=== PATIENT | female | born 1990 | race Two or more races ===

== ENCOUNTER 2021-06-30 12:24 | Emergency (ER) | payer MEDICAID, OTHER ==
[~2021-06-30] VITALS: Ht 154.9 cm; Wt 56.7 kg
[2021-06-30 15:47] VITALS: BP 129/65
== END 2021-06-30 17:17 | disposition home or self-care (01) ==
LOC: ER 12:24
DX: S82.832A Other fracture of upper and lower end of left fibula, initial encounter for closed fracture (principal); W18.49XA Other slipping, tripping and stumbling without falling, initial encounter; Y93.89 Activity, other specified; Y92.89 Other specified places as the place of occurrence of the external cause; Y99.8 Other external cause status
CPT/HCPCS: 29515